=== PATIENT | female | born 2000 | race Caucasian/White ===

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

== ENCOUNTER 2018-09-11 16:57 | Emergency (ER) | payer BC ==
--- NOTE | 2018-09-11 21:39 | ED ---
Head Injury - HPI Summary HPI Summary: Patient complains of head injury 3 days ago when she hit her head on the day car frame getting into the car. Denies symptoms with the first 2 days, but states persistent nausea vomiting, blurry vision in left eye, persistent headache 9/10 pain, difficulty focusing starting yesterday. Denies history of headaches. Denies LOC at initial event, dizziness, imbalance, fever, cough, sore throat, CP, SOB,, abdominal pain, change in urine, change in BM. Medical history is none. - History Of Current Complaint Chief Complaint: EDHeadInjury Stated Complaint: HEAD INJURY Time Seen by Provider: 09/11/18 18:50 Hx Obtained From: Patient Mechanism Of Injury: Blunt Trauma Onset/Duration: Started Hours Ago Onset of Pain: Post Accident Severity Currently: Moderate Severity Initially: Moderate Pain Intensity: 9 Pain Scale Used: 0-10 Numeric Location of Head Injury: Temporal Character: Sharp Associated Signs And Symptoms: Nausea, Vomiting, Headache, Visual Changes - Allergies/Home Medications Allergies/Adverse Reactions: Allergies Allergy/AdvReac Type Severity Reaction Status Date / Time No Known Allergies Allergy Verified 09/11/18 17:04 PMH/Surg Hx/FS Hx/Imm Hx Endocrine/Hematology History: Denies: Hx Anticoagulant Therapy Cardiovascular History: Denies: Hx Pacemaker/ICD GI History: Reports: Hx Gastroesophageal Reflux Disease - STARTED PRILOSEC FOR Sensory History: Denies: Hx Contacts or Glasses Opthamlomology History: Denies: Hx Contacts or Glasses Neurological History: Reports: Hx Migraine - NONE SINCE ON HORMONE PILLS Psychiatric History: Reports: Hx Anxiety, Hx Depression, Hx Panic Disorder Denies: Hx Eating Disorder, Hx of Violent Episodes Against Others Infectious Disease History: No Infectious Disease History: Denies: Traveled Outside the [place] in Last 30 Days - Family History Known Family History: Positive: Diabetes, Other - blood clots - Social History Alcohol Use: Rare Substance Use Type: Reports: None Hx Tobacco Use: No Smoking Status (MU): Never Smoked Tobacco Review of Systems Constitutional: Negative Positive: Blurred Vision ENT: Negative Cardiovascular: Negative Respiratory: Negative Positive: Vomiting, Nausea Genitourinary: Negative Musculoskeletal: Negative Skin: Negative Positive: Headache Psychological: Normal All Other Systems Reviewed And Are Negative: Yes Physical Exam - Summary Physical Exam Summary: Neuro exam normal. No evidence of trauma to head, face, mouth, neck. No pain with palpation of same. Triage Information Reviewed: Yes Vital Signs On Initial Exam: Initial Vitals Temp Pulse Resp BP Pulse Ox 97.8 F 84 16 129/71 100 09/11/18 17:01 09/11/18 17:01 09/11/18 17:01 09/11/18 17:01 09/11/18 17:01 Vital Signs Reviewed: Yes Appearance: Positive: Well-Appearing Skin: Positive: Warm Head/Face: Positive: Normal Head/Face Inspection Eyes: Positive: Normal Neck: Positive: Supple Respiratory/Lung Sounds: Positive: Clear to Auscultation Cardiovascular: Positive: Normal Abdomen Description: Positive: Nontender Musculoskeletal: Positive: Normal Neurological: Positive: Normal Psychiatric: Positive: Normal AVPU Assessment: Alert - [place] Coma Scale Best Eye Response: 4 - Spontaneous Best Motor Response: 6 - Obeys Commands Best Verbal Response: 5 - Oriented Coma Scale Total: 15 Diagnostics - Vital Signs Vital Signs Temp Pulse Resp BP Pulse Ox 09/11/18 20:25 76 103/67 100 09/11/18 20:00 74 97 09/11/18 19:55 74 110/68 100 09/11/18 19:25 74 108/72 100 09/11/18 19:00 75 100 09/11/18 18:55 74 111/77 100 09/11/18 18:53 73 100 09/11/18 17:01 97.8 F 84 16 129/71 100 - Laboratory Lab Statement: Any lab studies that have been ordered have been reviewed, and results considered in the medical decision making process. Head Injury Course/Dx Course Of Treatment: Patient complains of head injury 3 days ago when she hit her head on the day car frame getting into the car. Denies symptoms with the first 2 days, but states persistent nausea vomiting, blurry vision in left eye, persistent headache 9/10 pain, difficulty focusing starting yesterday. Denies history of headaches. Denies LOC at initial event, dizziness, imbalance, fever , cough, sore throat, CP, SOB,, abdominal pain, change in urine, change in BM. Medical history is none. Physical exam:Neuro exam normal. No evidence of trauma to head, face, mouth, neck. No pain with palpation of same. Vital signs within normal limits. No active N/V here in the ED. CT head negative. Ecchymosis likely concussion. - Diagnoses Provider Diagnoses: Head injury, Concussion Discharge - Sign-Out/Discharge Documenting (check all that apply): Patient Departure - Discharge Plan Condition: Stable Disposition: HOME Patient Education Materials: Concussion (ED), Post Concussion Syndrome (ED) Referrals: Martina Rob NP [Primary Care Provider] - Additional Instructions: Do not engage in contact sports until cleared by primary care. Symptoms of concussion will be intermittent over the course of next couple weeks. Follow- up with primary care. Return to the ED for any new or worsening symptoms - Billing Disposition and Condition Condition: STABLE Disposition: Home
[2018-09-11 22:04] VITALS: BP 123/74
== END 2018-09-11 22:03 | disposition home or self-care (01) ==
LOC: ED 16:57
DX: S09.90XA Unspecified injury of head, initial encounter (principal); S06.0X9A Concussion with loss of consciousness of unspecified duration, initial encounter; R11.2 Nausea with vomiting, unspecified; R51 Headache; H53.8 Other visual disturbances; W22.8XXA Striking against or struck by other objects, initial encounter; Y92.9 Unspecified place or not applicable
CPT/HCPCS: 70450; 99282

== ENCOUNTER 2019-06-18 17:36 | Emergency (ER) | payer BC ==
[2019-06-18 19:57] VITALS: BP 125/72
== END 2019-06-18 20:55 | disposition left against medical advice (07) ==
LOC: ED 17:36
DX: R10.9 Unspecified abdominal pain (principal); Z53.21 Procedure and treatment not carried out due to patient leaving prior to being seen by health care provider

== ENCOUNTER 2019-08-19 08:54 | Emergency (ER) | payer BC ==
[2019-08-19] MEDS ORDERED: Ondansetron INJ* 2 MG/ML VIAL IV ONE (09:21)
[2019-08-19] MEDS ORDERED: NS 0.9% 1000 ML** 1,000 ML IV ONE (09:21)
--- NOTE | 2019-08-19 09:46 | ED ---
Abdominal Pain/Female - HPI Summary HPI Summary: This pt is a 19 Y/O F presenting to [facility] accompanied by her mother and sister with a CC of a LLQ abdominal pain that radiates to her back when she lays down. She states that the pain has been present since 08/17/19 and has increased in severity since the onset. She rates the pain an 8/10 in severity. She states that she is 13-14 weeks with her first . Her GPA is a 1,0,0. She states that she has not been sexually active since she found out that she is . She states that the pain only radiates into her lower back and states that she has no radiation into her legs. She denies any dysuria, discharge, vaginal bleeding, N/V, SOB, CP, headaches, fevers, or chills. She has no alleviating factors. She had an endoscopy for GERD but is not taking any medications. She states that she quit smoking 13-14 weeks ago. She denies any alcohol or drug use. She has no pertinent family history. - History of Current Complaint Chief Complaint: Ferdinand Stated Complaint: ABD PAIN/13 WEEKS PREG PER PT Time Seen by Provider: 08/19/19 09:20 Hx Obtained From: Patient ?: Yes - 13-14 weeks, GPA: 1,0,0 Onset/Duration: Sudden Onset, Lasting Days - 3, Worse Since - last night Timing: Constant Severity Initially: Moderate Severity Currently: Severe Pain Intensity: 8 Pain Scale Used: 0-10 Numeric Location: Discrete At: LLQ Radiates: Yes Radiates to: Back Aggravating Factor(s): Other: - lying down Alleviating Factor(s): Nothing Associated Signs and Symptoms: Positive: Negative - SOB, headaches, or chills., Back Pain - lower, Other: - GPA: 1,0,0. Negative: Fever, Chest Pain, Urinary Symptoms, Vaginal Bleeding, Vaginal Discharge, Nausea, Vomiting Allergies/Adverse Reactions: Allergies Allergy/AdvReac Type Severity Reaction Status Date / Time pineapple Allergy Rash Verified 08/19/19 08:58 PMH/Surg Hx/FS Hx/Imm Hx Previously Healthy: Yes Endocrine/Hematology History: Denies: Hx Anticoagulant Therapy Cardiovascular History: Denies: Hx Pacemaker/ICD GI History: Reports: Hx Gastroesophageal Reflux Disease - STARTED PRILOSEC FOR Sensory History: Denies: Hx Contacts or Glasses Opthamlomology History: Denies: Hx Contacts or Glasses Neurological History: Reports: Hx Migraine - NONE SINCE ON HORMONE PILLS Psychiatric History: Reports: Hx Anxiety, Hx Depression, Hx Panic Disorder Denies: Hx Eating Disorder, Hx of Violent Episodes Against Others - Surgical History Surgical History: Yes Surgery Procedure, Year, and Place: endoscopy - Immunization History Hx Pertussis Vaccination: Yes Infectious Disease History: No Infectious Disease History: Denies: Traveled Outside the [place] in Last 30 Days - Family History Known Family History: Positive: Diabetes, Other - blood clots - Social History Occupation: Unemployed Lives: With Family Alcohol Use: None Hx Substance Use: No Substance Use Type: Reports: None Hx Tobacco Use: Yes Smoking Status (MU): Former Smoker Amount Used/How Often: Quit when she became Review of Systems Negative: Fever, Chills Negative: Chest Pain Negative: Shortness Of Breath Positive: Abdominal Pain - LLQ. Negative: Vomiting, Diarrhea Negative: dysuria, discharge Positive: Other - radiated back pain Negative: Headache All Other Systems Reviewed And Are Negative: Yes Physical Exam - Summary Physical Exam Summary: VITAL SIGNS: Reviewed. GENERAL: Patient is a well-developed and nourished female who is lying comfortable in the stretcher. Patient is not in any acute respiratory distress. HEAD AND FACE: No signs of trauma. No ecchymosis, hematomas or skull depressions. No sinus tenderness. EYES: PERRLA, EOMI x 2, No injected conjunctiva, no nystagmus. EARS: Hearing grossly intact. Ear canals and tympanic membranes are within normal limits. MOUTH: Oropharynx within normal limits. NECK: Supple, trachea is midline, no adenopathy, no JVD, no carotid bruit, no c- spine tenderness, neck with full ROM CHEST: Symmetric, no tenderness at palpation LUNGS: Clear to auscultation bilaterally. No wheezing or crackles. CVS: Regular rate and rhythm, S1 and S2 present, no murmurs or gallops appreciated. ABDOMEN: Soft, LLQ and L pelvic tenderness. No signs of distention. No rebound no guarding, and no masses palpated. Bowel sounds are normal. EXTREMITIES: FROM in all major joints, no edema, no cyanosis or clubbing. NEURO: Alert and oriented x 3. No acute neurological deficits. Speech is normal and follows commands. SKIN: Dry and warm Triage Information Reviewed: Yes Vital Signs On Initial Exam: Initial Vitals Temp Pulse Resp BP Pulse Ox 97.7 F 70 16 125/79 100 08/19/19 08:56 08/19/19 08:56 08/19/19 08:56 08/19/19 08:56 08/19/19 08:56 Vital Signs Reviewed: Yes Procedures - Sedation Patient Received Moderate/Deep Sedation with Procedure: No Diagnostics - Vital Signs Vital Signs Temp Pulse Resp BP Pulse Ox 08/19/19 08:56 97.7 F 70 16 125/79 100 - Laboratory Result Diagrams: 08/19/19 10:00 08/19/19 10:00 Lab Statement: Any lab studies that have been ordered have been reviewed, and results considered in the medical decision making process. - Ultrasound US Ultrasound Interpretation Completed By: Radiologist Summary of Ultrasound Findings: Single intrauterine gestation with a gestational age of 13 weeks 0 days. Estimated date of delivery is February 24, 2020. heart activity is noted. ED physician has reviewed this report. Abdominal Pain Fem Course/Dx - Course Course Of Treatment: Patient is a 19-year-old female with a chief complaint left lower quadrant and pelvic pain. The patient reports that she is 12 weeks . She is . Blood work without any significant abnormality except for hemoglobin 11.6. Beta hCG positive with 54,000 183. 7. In the ED course the patient declined medication except for Tylenol. Pelvic U/S IMPRESSION: Single intrauterine gestation with a gestational age of 13 weeks 0 days. Estimated date of delivery is February 24, 2020. heart activity is noted. UA negative for UTI. I discussed my physical exam and findings with Dr. Gonzales from [facility] and he agrees for the patient to be discharged home with follow-up instructions to follow up with her ANALYTICAL CHEMISTR[employer] TE[employer] in the next couple days. I discussed all the findings and test results with the patient. Patient was instructed to return to the emergency room immediately if any of the symptoms return worsens. Plan of care was discussed with the patient and understands and agrees. All questions were answered at patient satisfaction. There were no further complaints or concerns. Lung exam before discharge: CTA B/L. Good air exchange. No wheezing or crackles heard. CVS: S1 and S2 present. No murmurs appreciated. Patient is alert and oriented x 3. Patient is hemodynamically stable. Patient will be discharged home with follow up PCP in the next 2-3 days - Diagnoses Provider Diagnoses: Lower abdominal pain - Provider Notifications Discussed Care Of Patient With: Edgar Gonzales JR Time Discussed With Above Provider: 13:31 Instructed by Provider To: Other - Dr. Gonzales, ANALY[employer]MI[employer], stated that the pt should be discharged home. Discharge ED - Sign-Out/Discharge Documenting (check all that apply): Patient Departure - Discharge Plan Condition: Stable Disposition: HOME Patient Education Materials: Acute Abdominal Pain (ED), Abdominal Pain (ED) Forms: *Work Release Referrals: Edgar Gonzales JR, [Doctor of Osteopathy] - 2 Days Martina Rob INFRASTRUCTURE ANALYST [Primary Care Provider] - 2 Days Additional Instructions: RETURN TO THE ED FOR ANY WORSENING OR NEW SYMPTOMS AND FOLLOW UP WITH YOUR PRIMARY CARE PHYSICIAN IN 1-3 DAYS AND/OR DR. GONZALES, ANALYTICAL CHEMISTRY TEACHER. - Billing Disposition and Condition Condition: STABLE Disposition: Home - Attestation Statements Document Initiated by Farrukh: Yes Documenting Scribe: Yunier Medina Provider For Whom Farrukh is Documenting (Include Credential): Farhan Zurita MD Scribe Attestation: Yunier Smith scribed for Farhan Zurita MD on 08/19/19 at 1833. Scribe Documentation Reviewed: Yes Provider Attestation: The documentation as recorded by the Yunier roblero accurately reflects the service I personally performed and the decisions made by me, Farhan Zurita MD Status of Scribe Document: Viewed
[2019-08-19] MEDS ORDERED: Acetaminophen TAB* 325 MG PO ONE (09:55)
[2019-08-19 10:06] LABS: ABS Eosinophils 0.1 10^3/ul (0-0.6); ABS Lymphocytes 1.5 10^3/ul (1.0-4.8); ABS Monocytes 0.5 10^3/ul (0-0.8); ABS Neutrophils 4.6 10^3/ul (1.5-7.7); Eosinophil % 1.2 %; Hematocrit 35 % (35-47); Hemoglobin 11.6 g/dL (12.0-16.0); Mean Corpuscular HGB Conc 33 g/dL (31-36); Mean Corpuscular Hemoglobin 30 pg (27-31); Mean Corpuscular Volume 90 fL (80-97); Mean Platelet Volume 8.1 fL (7.4-10.4); Nucleated Red Blood Cells % 0.1; Platelet Count 238 10^3/uL (150-450); Red Blood Count 3.85 10^6 /uL (3.70-4.87); Red Cell Distribution Width 14 % (10-15); White Blood Count 6.7 10^3/uL (3.5-10.8)
[2019-08-19 10:22] LABS: Albumin 4.1 g/dL (3.2-5.2); Albumin/Globulin Ratio 1.6 (1-3); C Reactive Protein 7.09 mg/L (<8.01); Calcium 9.2 mg/dL (8.6-10.3); EGFR African American 188.5 (>60); EGFR Non-African American 155.7 (>60); Globulin 2.5 g/dL (2-4); Potassium 3.8 mmol/L (3.5-5.0); Total Bilirubin 0.6 mg/dL (0.2-1.0); Total Protein 6.6 g/dL (6.4-8.9)
[2019-08-19] MEDS ORDERED: Acetaminophen PED LIQ* 160 MG/5 ML UDC PO PRN (12:06)
[2019-08-19] MEDS ORDERED: Acetaminophen PED LIQ* 160 MG/5 ML UDC PO ONE (12:13)
[2019-08-19 13:10] LABS: Urine Appearance Cloudy; Urine Bilirubin Negative (Negative); Urine Blood Negative (Negative); Urine Color Yellow; Urine Glucose Negative (Negative); Urine Ketones 1+ (Negative); Urine Nitrite Negative (Negative); Urine Protein Negative (Negative); Urine Specific Gravity 1.016 (1.010-1.030); Urine Urobilinogen Negative (Negative)
[2019-08-19 14:14] VITALS: BP 125/79
== END 2019-08-19 14:10 | disposition home or self-care (01) ==
LOC: ED 08:54
DX: O26.891 Other specified pregnancy related conditions, first trimester (principal); R10.32 Left lower quadrant pain; K21.9 Gastro-esophageal reflux disease without esophagitis; Z87.891 Personal history of nicotine dependence; Z79.899 Other long term (current) drug therapy; Z3A.13 13 weeks gestation of pregnancy
CPT/HCPCS: 36415; 76801; 80053; 81003; 83690; 84702; 85025; 86140; 86900; 86901; 96361; 96374; 99283; A9270-GY; J2405

== ENCOUNTER 2020-02-25 11:26 | Inpatient (IN) | payer BC ==
[2020-02-25] MEDS ORDERED: Buffered Lidocaine 1% SYRIN* 1 ML/SYRINGE INTRADERM ONE (12:09)
[2020-02-25] MEDS ORDERED: Lactated Ringers 1000 ML Bag* 1,000 ML IV ONE (12:09)
[2020-02-25] MEDS ORDERED: Misoprostol TAB* 100 MCG PO ONE (12:09)
--- NOTE | 2020-02-25 12:23 | HP ---
General Information - Reason for Visit Pt admitted for cervical ripening and induction of labor in context of postdates and decreased movement. - General Information Maternal Age: 19 Grav: 2 Para: 0 SAB: 1 IEA: 0 Estimated Due Date: 02/20/20 Determined By: Early Ultrasound Maternal Blood Type and Rh: A Negative - Results this Serology/RPR Result: Non-Reactive Rubella Result: Immune HBsAg Result: Negative HIV Result: Negative GBS Culture Result: Negative Past Medical History Delivery History: See Records - Primiparous Pertinent Past Medical History: See Records - back pain Pertinent Past Surgical History: See Records - Endoscopy Pertinent Family History: See Records - HTN, possible clotting disorder - Antepartal Records Antepartal Records: Reviewed, Uncomplicated - Rh negative Review of Systems Constitutional: Comfortable CV Complaint: No Respiratory: Shortness of Breath: No Gastrointestinal: No Nausea/Vomiting, Normal Bowel Movement Genitourinary: No Dysuria, No Bleeding, No Leaking Fluid Musculoskeletal: No Epigastric Pain, Back Pain Neurological: No Headache Movement: Decreased Exam Allergies/Adverse Reactions: Allergies pineapple Allergy (Intermediate, Verified 02/24/20 11:04) Swelling "face and hands swell up" T-97.9, P-95, R-20, O2-99%, BP-125/80 - Measurements Height: 5 ft 6 in Weight: 78.018 kg Weight in lbs: 172.650066 Body Mass Index (BMI): 27.7 Pre- Weight: 61.235 kg Weight Gained This : 37 lbs and 0 ozs - Exam Breast: Breast Exam Deferred CVA: No CVA Tenderness Extremities: No Edema Heart: Normal Rhythm/Heart Sounds HEENT: No Significant Findings Lungs: Clear Bilaterally Rectal: Rectal Exam Deferred Reflexes: DTR 2+ Thyroid: No Thyromegaly - Abdominal Exam Abdomen Exam: Non-Tender, Fundal Height Consistent with Dates Targeted Exam Findings See L&D Outpatient Visit Provider Note for Findings: N/A Estimated Weight: 7.5 Bleeding/Discharge: None - Exam yesterday cervix closed. Pt with difficulty tolerating exams. Denies any UCs since last night. Will defer cervical exam until 4 hours after first dose oral misoprostol or as needed. EFM Findings - External Monitor Findings Baseline Heart Rate: 130 External Monitor Findings: Accelerations Present, No Pattern of Variable or Late Decelerations, Variability Moderate, Baseline Stable Contractions: None Assessment/Plan - Assessment 19 year old at 40 5/7 weeks gestation here for induction of labor due to postdates and decreased movement. FHR tracing category I, cervix likely unfavorable. - Obstetrical Risk Factors Obstetrical Risk Factors: Post-Dates - Plan Plan: Cervical Ripening, Admit - Anticipate Vaginal Delivery Plan Comment: Due to pt's difficulty tolerating exam, will initiate oral misoprostol based on last night's exam. Pt not mishel and denies UCs overnight. Aware will need to check for cervical dilation four hours after initial misoprostol dose to determine plan of care. - Date/Time of Admission Date of Admission: 02/25/20 Time of Admission: 12:05
[2020-02-25] MEDS ORDERED: Lactated Ringers 1000 ML Bag* 1,000 ML IV SCH (13:00)
[2020-02-25 13:33] LABS: Urine Benzodiazepine Screen None Detected (None Detect); Urine Opiates Screen None Detected (None Detect)
[2020-02-25] MEDS ORDERED: Dinoprostone* 10 MG VAG.SUPP VAGINAL ONE (16:53)
--- NOTE | 2020-02-25 17:01 | PN ---
Progress Note - Progress Note Date of Service: 02/25/20 SOAP: Subjective: Pt comfortable, does not feels UCs. Tolerated vaginal exam well. Partner at bedside. Objective: Cervix: 1cm/ 60%/ -1/ vtx FHR: Baseline 130/ moderate variability/ + accels/ no decels UCs: 1-5, mild Assessment: Pt appears to be making good progress, but would still benefit from more cervical ripening. No evidence of acidemia. Plan: Discussed options. Do not recommend further dose of misoprostol at this time, as I am concerned that she could experience uterine hyperstimulation. Recommend Cervidil as it can be easily removed if excessive uterine activity. Pt in agreement. Will wait for ctx pattern to space out to >[address]ervidil.
--- NOTE | 2020-02-25 21:30 | PN ---
Progress Note - Progress Note Date of Service: 02/25/20 SOAP: Subjective: Pt feeling comfortable, reports some mild cramping but otherwise not aware of ctx. Objective: FHR: Baseline 130/ moderate variability/ + accels/ no decels UCs: 1-3 minutes/ mild Temp: 98.1 BP: 124/66 Assessment: Pt mishel too frequently to initiate further cervical ripening medication at this time. No evidence of acidemia. Plan: Encourage rest and hydration. Will check another NST in a few hours and consider cervical ripening at that time if warranted.
--- NOTE | 2020-02-26 01:51 | PN ---
Progress Note - Progress Note Date of Service: 02/26/20 SOAP: Subjective: Pt reports UCs are feeling stronger but still fairly comfortable Objective: Cervical exam deferred FHR: Baseline 130/ moderate variability/ + accels/ no decels UCs: 2-4 minutes Temp: 97.6 BP: 127/83 Assessment: Pt continues to contract regularly. No evidence of acidemia. Plan: Maxx too frequently for further ripening with prostaglandins at this time. Will monitor for progression to active labor. Consider Pitocin augmentation if no onset active labor.
--- NOTE | 2020-02-26 07:39 | PN ---
Progress Note - Progress Note Date of Service: 02/26/20 SOAP: Subjective: Pt reports ctx getting stronger, more uncomfortable, coping well. Objective: FHR: Baseline 125/ moderate variability/ no accels/ no decels UCs: 3-6 minutes Cervix: 2cm/ 70%/ -1/ vtx BP: 116/74 T-97.1 Assessment: Pt with good cervical change. Not in active labor, but mishel too frequently for prostaglandins. No evidence of acidemia. Plan: Discussed options with pt. Will do trial of low dose Pitocin.
[2020-02-26 07:49] LABS: ABS Basophils 0.1 10^3/ul (0-0.2); ABS Eosinophils 0.1 10^3/ul (0-0.6); ABS Lymphocytes 2.8 10^3/ul (1.0-4.8); ABS Neutrophils 8.5 10^3/ul (1.5-7.7); Eosinophil % 1.1 %; Hematocrit 35 % (35-47); Hemoglobin 11.2 g/dL (12.0-16.0); Lymphocyte % 22.2 %; Mean Corpuscular HGB Conc 33 g/dL (31-36); Mean Corpuscular Hemoglobin 27 pg (27-31); Mean Corpuscular Volume 82 fL (80-97); Mean Platelet Volume 9.8 fL (7.4-10.4); Nucleated Red Blood Cells % 0.1; Platelet Count 289 10^3/uL (150-450); Red Blood Count 4.21 10^6 /uL (3.70-4.87); Red Cell Distribution Width 15 % (10-15); White Blood Count 12.4 10^3/uL (3.5-10.8)
[2020-02-26] MEDS ORDERED: Oxytocin in LR* 20 UNITS/1,000 ML BAG IVPB SCH ×2 (08:00→23:45)
--- NOTE | 2020-02-26 09:01 | PN ---
Progress Note - Progress Note Date of Service: 02/26/20 Note: S: Comfortable, reports she slept "some" last night. Eating breakfast. O: VE deferred Pitocin @ 4miU FHT 130 +accels, no decels, mod wilfrido UCs q 3-5 min VSS, afebrile A: IUP @ 40+6 weeks gestation for postdates induction No evidence acidemia Membranes intact P: Continue pitocin titration. Reassess cervical change PRN or after several hours of active contraction pattern. Patient will desire epidural when uncomfortable.
[2020-02-26] MEDS ORDERED: OBEPIDURAL* 250 ML EPIDURAL ONE (14:15)
--- NOTE | 2020-02-26 14:26 | PN ---
Progress Note - Progress Note Date of Service: 02/26/20 Note: S: Very uncomfortable, would like to consider epidural O: VE: 3cm/90/0 FHT 125, +accels, no decels, mod variability UCs q 2-5 min Pit @ 14 VSS A: IUP in early labor, induction No evidence acidemia P: PARQ discussion epidural for pain management. Patient desires. Will turn down pitocin until procedure complete. Anesthesia paged to unit.
[2020-02-26] MEDS ORDERED: Lactated Ringers 1000 ML Bag* 1,000 ML IV ONE (15:17)
[2020-02-26] MEDS ORDERED: Sodium Citrate/Citric Acid* 15 ML UDC PO PRN (15:17)
[2020-02-26] MEDS ORDERED: Phenylephrine 40 MCG/ML SYRINGE IV PUSH PRN ×2 (15:17)
[2020-02-26] MEDS ORDERED: Famotidine TAB* 20 MG PO PRN (15:17)
[2020-02-26] MEDS ORDERED: Lactated Ringers 1000 ML Bag* 500 ML IV PRN ×2 (15:17)
[2020-02-26] MEDS ORDERED: Lactated Ringers 1000 ML Bag* 1,000 ML IV SCH (16:00)
[2020-02-26] MEDS ORDERED: OBEPIDURAL* 250 ML EPIDURAL SCH (16:00)
--- NOTE | 2020-02-26 21:26 | PN ---
Progress Note - Progress Note Date of Service: 02/26/20 Note: S: Patient comfortable though feeling some contractions and more low pelvic pressure. O: VE 7-8/100/0 FHT 125, mod wilfrido, +accels, variable decels Pit @ 14, will decrease UCs q 2-3 VSS A: IUP in active labor doubt acidemia membranes ruptured P: Decrease or turn off pitocins, position changes. Will reassess in 1-2 hours or sooner PRN.
[2020-02-26] MEDS ORDERED: Carboprost Tromethamine* 250 MCG INJ ONE (23:27)
[2020-02-26] MEDS ORDERED: Misoprostol TAB* 200 MCG PR ONE (23:52)
[2020-02-26] MEDS ORDERED: Methylergonovine INJ* 0.2 MG/ML 1ML AMP IM ONE (23:52)
[2020-02-26] MEDS ORDERED: Dibucaine 1% 28.35 GM TUBE PR PRN (23:52)
[2020-02-26] MEDS ORDERED: Ibuprofen TAB* 600 MG PO PRN (23:52)
[2020-02-26] MEDS ORDERED: Acetaminophen TAB* 325 MG PO PRN (23:52)
[2020-02-26] MEDS ORDERED: Witch Hazel PAD* JAR TOPICAL PRN (23:52)
[2020-02-26] MEDS ORDERED: Glycerin ADULT SUPP PR PRN (23:52)
[2020-02-27] MEDS ORDERED: TRANEXAMIC ACID 1 GM/100ML BAG 1,000 MG/100 ML BAG IV ONE (00:06)
[2020-02-27] MEDS ORDERED: Ondansetron INJ* 2 MG/ML VIAL IV PRN (01:29)
[2020-02-27 01:34] LABS: ABS Lymphocytes 1.5 10^3/ul (1.0-4.8); ABS Monocytes 1.4 10^3/ul (0-0.8); ABS Neutrophils 14.2 10^3/ul (1.5-7.7); Eosinophil % 0.1 %; Hematocrit 26 % (35-47); Lymphocyte % 8.8 %; Mean Corpuscular HGB Conc 34 g/dL (31-36); Mean Corpuscular Hemoglobin 28 pg (27-31); Mean Corpuscular Volume 82 fL (80-97); Mean Platelet Volume 9.5 fL (7.4-10.4); Platelet Count 227 10^3/uL (150-450); Red Blood Count 3.23 10^6 /uL (3.70-4.87); Red Cell Distribution Width 15 % (10-15); White Blood Count 17.1 10^3/uL (3.5-10.8)
[2020-02-27] MEDS ORDERED: Lidocaine 1% INJ* 10 MG/ML 30 ML SDV ONE (05:01)
[2020-02-27] MEDS ORDERED: OXYTOCIN* 10 UNITS/ML 1 ML VIAL ONE (05:01)
[2020-02-27 06:49] LABS: ABS Basophils 0.1 10^3/ul (0-0.2); ABS Lymphocytes 1.6 10^3/ul (1.0-4.8); ABS Monocytes 0.9 10^3/ul (0-0.8); ABS Neutrophils 12.5 10^3/ul (1.5-7.7); Hematocrit 23 % (35-47); Hemoglobin 7.7 g/dL (12.0-16.0); Lymphocyte % 10.6 %; Mean Corpuscular HGB Conc 33 g/dL (31-36); Mean Corpuscular Hemoglobin 27 pg (27-31); Mean Corpuscular Volume 82 fL (80-97); Mean Platelet Volume 8.9 fL (7.4-10.4); Platelet Count 214 10^3/uL (150-450); Red Blood Count 2.86 10^6 /uL (3.70-4.87); Red Cell Distribution Width 15 % (10-15)
--- NOTE | 2020-02-27 07:11 | PROCNOTE ---
[facility] OB: Delivery Note - Delivery A Date of : 02/26/20 Time of : 23:15 [place] Sex: Male - "Servando" Weight at : 8 lb Score 1 Minute: 9 Score 5 Minutes: 9 Gestational Age in Weeks and Days at Delivery: 40 Weeks and 6 Days Delivery Method: Spontaneous Vaginal Labor: Induced Did Patient attempt ?: N/A, No Previous Amniotic Fluid: Clear Estimated Blood Loss: 1,250 Anesthesia/Analgesia: CEI for Labor Delivered By: Bjorn Aviles - Nursery Level of Nursery: Regular/Bedside - Perineum Perineal Injury: Perineal Laceration, 2nd Degree Perineal Injury Comment: 3-0 Rapide Perineal Repair: By Delivering Practioner - Events Delivery Events of Note: Supplemental O2 to Mother, Post- Bleeding - Meds Given - Risk for Falls Delivered OB Patient- Risk for Falls: Heavy Bleeding Fall Risk: Patient is at High Risk for Falls - Additional Delivery Notes Additional Delivery Notes: Esme is a 19 yo admitted for cervical ripening and induction for postdates. Cervidil and pitocin lead to active labor. Length 9'23", pushed 1 hour. Baby born OA with minimal restitution, nuchal cord and posterior nuchal arm, shoulders followed smoothly with maternal push. Baby to lower maternal abdomen due to short cord, spontaneous cry/respirations, HR>110, copious vernex. Cord doubly clamped and cut by baby's father once pulsations ceased @ approx 5 minutes. Placenta delivered with gentle cord traction in [place] presentation with intact appearing membrane, 3VC. Copious bleeding noted despite fundal massage and initiation of IV pitocin so Cytotec 800mcg IA and methergine 0.2mg IM given. Bleeding not noted to slow quickly so bimanual compression initiated by this CNM, personnel activated for possible transfusion protocoal and compression maintained until uterus remained firm and bleeding slowed to a trickle. Tranexamic acid infusion also started shortly after. Perineum inspected and repaired as above under 1% lidocaine. Baby at breast to initiate feeding.
[2020-02-27] MEDS: Ferrous Gluconate TAB* 324 MG TAB PO SCH ×2 (09:29→20:22)
[2020-02-27] MEDS: Docusate CAP* 100 MG PO SCH ×2 (09:32→14:00)
[2020-02-27] MEDS ORDERED: Oxytocin in LR* 20 UNITS/1,000 ML BAG IVPB SCH (09:53)
[2020-02-27] MEDS: Acetaminophen ADULT LIQ* 650 MG/20.3 ML UDC PO PRN (20:23)
--- NOTE | 2020-02-27 23:20 | PN ---
Progress Note - Progress Note Date of Service: 02/27/20 Note: S: Esme reports feeling dizzy, lightheaded when sitting up since earlier this evening. She reports she has passed several blood clots since this afternoon. She denies SOB, dyspnea. Reports headache and fatigue. She is curious about possibility of blood transfusion O: B/P: 122/72, P: 103, R: 14, T: 98.4 Hgb 7.7, Hct: 23 this morning A: 19 yo female s/p vaginal delivery and hemorrhage Acute blood loss anemia Hgb <8, symptomatic P: Discussed benefits and risks of transfusion, Esme would like to proceed vs waiting until morning Will re-draw hgb/hct for new baseline, initiate nonemergent transfusion protocol Reassess PRN
[2020-02-27 23:54] LABS: Hematocrit 23 % (35-47); Hemoglobin 7.5 g/dL (12.0-16.0)
[2020-02-28 07:22] LABS: ABS Basophils 0.1 10^3/ul (0-0.2); ABS Eosinophils 0.1 10^3/ul (0-0.6); ABS Lymphocytes 3.3 10^3/ul (1.0-4.8); ABS Monocytes 0.9 10^3/ul (0-0.8); ABS Neutrophils 9.7 10^3/ul (1.5-7.7); Eosinophil % 0.7 %; Hematocrit 28 % (35-47); Hemoglobin 9.2 g/dL (12.0-16.0); Lymphocyte % 23.3 %; Mean Corpuscular HGB Conc 33 g/dL (31-36); Mean Corpuscular Hemoglobin 28 pg (27-31); Mean Corpuscular Volume 83 fL (80-97); Mean Platelet Volume 8.9 fL (7.4-10.4); Platelet Count 234 10^3/uL (150-450); Red Blood Count 3.33 10^6 /uL (3.70-4.87); Red Cell Distribution Width 15 % (10-15)
[2020-02-28] MEDS: Ferrous Gluconate TAB* 324 MG TAB PO SCH ×2 (08:42→21:43)
[2020-02-28] MEDS: Ibuprofen ADULT LIQ* 600 MG/30 ML UDC PO SCH ×5 (08:46→21:42)
[2020-02-28] MEDS: Docusate CAP* 100 MG PO SCH ×3 (08:46→19:47)
[2020-02-28] MEDS ORDERED: RHO D Immune Globulin (HUMAN)* 300 MCG = 1,500 I.U. INJ IM ONE ×2 (12:08→14:34)
[2020-02-28] MEDS: Hydrocortisone 1% CREAM* 30 GM TUBE TOPICAL SCH ×4 (12:12→19:47)
[2020-02-28] MEDS: Acetaminophen ADULT LIQ* 650 MG/20.3 ML UDC PO PRN ×2 (15:27→21:06)
[2020-02-29] MEDS: Ferrous Gluconate TAB* 324 MG TAB PO SCH (08:14)
[2020-02-29] MEDS: Acetaminophen ADULT LIQ* 650 MG/20.3 ML UDC PO PRN (08:16)
[2020-02-29 08:24] VITALS: BP 127/72
== END 2020-02-29 11:00 | disposition home or self-care (01) | DRG 560 ==
LOC: MCHOBOUT 11:26 → MCHOB 12:14
PROVIDERS: ADMIT Midwife; ATTEND Midwife
PROC: 10E0XZZ Delivery of Products of Conception, External Approach (ICD-10-PCS; principal; 2020-02-26)
PROC: 3E033VJ Introduction of Other Hormone into Peripheral Vein, Percutaneous Approach (ICD-10-PCS; 2020-02-26)
PROC: 0KQM0ZZ Repair Perineum Muscle, Open Approach (ICD-10-PCS; 2020-02-26)
PROC: 30233N1 Transfusion of Nonautologous Red Blood Cells into Peripheral Vein, Percutaneous Approach (ICD-10-PCS; 2020-02-27)
DX: O48.0 Post-term pregnancy (principal); O72.1 Other immediate postpartum hemorrhage; Z37.0 Single live birth; O70.1 Second degree perineal laceration during delivery; O69.81X0 Labor and delivery complicated by cord around neck, without compression, not applicable or unspecified; O32.2XX0 Maternal care for transverse and oblique lie, not applicable or unspecified; O69.3XX0 Labor and delivery complicated by short cord, not applicable or unspecified; Z3A.40 40 weeks gestation of pregnancy; O90.81 Anemia of the puerperium; D64.9 Anemia, unspecified
CPT/HCPCS: 36415; 80307; 85014; 85018; 85025; 85461; 86850; 86900; 86901; 86922; A9270-GY; G0480; J2210; J2405; J2590; J2790; P9016; S0191